=== PATIENT | female | born 1950 | race Caucasian/White ===

== ENCOUNTER 2016-07-14 23:12 | Emergency (ER) | payer OTHER ==
[~2016-07-14] VITALS: Ht 175.3 cm; Wt 95.1 kg
[~2016-07-14 23:12] MED LIST: 8 HOUR PAIN RE650 M1 PO; ADVAIR 250/501 DISK IH; ADVAIR HFA120 INHALA IH; ADVAIR IH; ALLERGY RELIEF10 M1 PO; ALLOPURINOL100 MG PO; ALLOPURINOL300 MG PO; ARTHRI-FLEX TA1 EACH PO; ASPIR 8181 M1 PO; ASPIRIN CHEWABL81 MG PO; ASPIRIN81 M1 PO; ASPIRIN81 M2 PO; ATIVAN0.5 MG PO; AUGMENTIN875 MG PO; BACLOFEN10 MG PO; BACTRIM,SEPT1 TABLE1 PO; BYSTOLIC10 MG PO; CALCIUM ACETAT667 M2 PO; CARDURA2 M1 PO; CILOSTAZOL50 MG PO; CIPRO500 MG PO; CLARITIN10 MG PO; COUMADIN3 MG PO; COUMADIN5 MG PO; COUMADIN6 MG PO; CYCLOBENZAPRINE10 MG PO; CYMBALTA60 MG PO; DAILY VITAMIN1 EAC4 PO; DAILY VITAMIN1 EAC8 PO; DAILY VITE1 EAC1 PO; DIALYVITE 3,001 EACH PO; DIALYVITE TABL1 EACH PO; DIAZEPAM5 MG PO; DIGOX125 MCG PO; DIGOXIN125 MCG PO; DILAUDID4 MG PO; DOXYCYCLINE HY100 M3 PO; EFFEXOR XR75 MG PO; EFFEXOR37.5 MG PO; EFFEXOR75 MG PO; FENOFIBRATE145 M1 PO; FOLBEE PLUS TABL5 MG PO; FOLIC ACID1 MG PO; GABAPENTIN300 MG PO; GRALISE300 MG PO; HYDROCODON-ACE1 EAC7 PO; LANOXIN125 MCG PO; LASIX80 MG PO; LEVAQUIN500 MG PO; LEVAQUIN750 MG PO; LEVOFLOXACIN500 MG PO; LEXAPRO10 MG PO; LO-DOSE ASPIRIN81 M1 PO; LOPRESSOR100 M1 PO; LOPRESSOR25 MG PO; LOPRESSOR50 MG PO; MAG-OXIDE400 MG PO; MAGNESIUM400 M1 PO; MAGNESIUM400 MG PO; MEDROL DOSEPAK4 MG PO; METOPROLOL SUC100 MG PO; METOPROLOL SUCC50 MG PO; METOPROLOL TART25 MG PO; METOPROLOL TART50 MG PO; MIDODRINE HCL10 MG PO; MIRALAX17 GM PO; MYCELEX10 MG PO; MYFORTIC PO; MYFORTIC360 MG PO; NASONEX17 GM BOTH NARES; NEURONTIN300 MG PO; NICOTINE PATCH1 EAC2 TD; NIFEDIPINE ER30 MG PO; NYQUIL D COLD295 ML PO; ONDANSETRON ODT4 MG PO; PANTOPRAZOLE SO40 MG PO; PRAVACHOL40 MG PO; PRAVASTATIN SOD40 MG PO; PREDNISONE10 MG PO; PREDNISONE20 MG PO; PROGRAF1 MG PO; PROGRAF5 MG PO; PROMETHAZINE HC25 M1 PO; PROTONIX40 MG PO; PROVENTIL HFA6.7 GM IH; PYRIDOXINE HCL50 MG PO; RENAGEL800 MG PO; RENVELA800 MG PO; SENSIPAR60 MG PO; SENSIPAR90 MG PO; SODIUM BICARBO325 M1 PO; SODIUM BICARBO325 MG PO; SPIRIVA1 INHALATI IH; ST. JOSEPH ASPI81 MG PO; TACROLIMUS ANHYD1 MG PO; TOPROL XL100 MG PO; TRAMADOL HCL50 MG PO; TRAZODONE HCL50 MG PO; TRICOR145 MG PO; TUSSIN400 MG PO; TYLENOL EXTRA500 MG PO; TYLENOL WITH C1 EACH PO; ULTRAM50 MG PO; VALCYTE450 MG PO; VALIUM5 MG PO; VASOTEC5 MG PO; VENLAFAXINE HCL75 M3 PO; VENLAFAXINE HCL75 MG PO; VENTOLIN HFA18 GM IH; VICODIN 5-5001 EACH PO; VITAMIN B-650 M1 PO; VITAMIN B-650 MG PO; VITAMIN D-32000 UNI2 PO; VITAMIN D-32000 UNIT PO; VITAMIN D2000 INTUN PO; VITAMIN D2000 UNIT PO; VITAMIN D32000 UNI1 PO; VOLTAREN 1% GE100 GM TP; WARFARIN SODIU2.5 MG PO; WARFARIN SODIUM2 MG PO; WARFARIN SODIUM3 MG PO; WARFARIN SODIUM5 MG PO; ZOFRAN ODT4 MG PO; ZOFRAN4 MG PO; ZUPLENZ4 MG PO; ZYLOPRIM100 MG PO; [UNRECOGNIZED DRUG - OTHER] TP
[2016-07-15 00:19] LABS: CHLORIDE 109 mEq/L (99-109); POTASSIUM 4.5 mEq/L (3.7-5.4); SODIUM 138 mEq/L (136-147)
[2016-07-15 00:20] LABS: HEMATOCRIT 47.8 % (36.0-46.0); MCH 28.4 PG (29.0-34.0); MCV 88.7 FL (83-99); PLATELET COUNT 176 K/uL (156-360); RBC DIS.WIDTH-CV 15.8 % (11.8-14.6); RBC DIS.WIDTH-SD 50.6 % (39-53); RED BLOOD COUNT 5.39 M/uL (3.80-5.20)
[2016-07-15 00:21] LABS: EOSINOPHIL (%) 0.1 % (0-5); GLUCOSE 215 mg/dL (70-99); IMMATURE GRANULOCYTE (%) 1.5 % (0.0-0.7); LYMPHOCYTE COUNT 1.1 K/uL (1.0-2.8); MONOCYTE (%) 4.5 % (3-12); MONOCYTE COUNT 0.4 K/uL (0-0.8); NEUTROPHIL (%) 79.5 % (45-76); NEUTROPHIL COUNT 6.3 K/uL (1.8-6.4)
[2016-07-15 00:22] LABS: ANION GAP 11 MEQ/L (2-14); IMMATURE GRANULOCYTE COUNT 0.1 K/uL
[2016-07-15 00:23] LABS: TOTAL BILIRUBIN 0.3 mg/dL (0.0-1.0)
[2016-07-15 00:24] LABS: ALKALINE PHOSPHATASE 79 IU/L (3-129)
[2016-07-15 00:25] LABS: GFR ESTIMATE (CALCULATED) 34 mL/min/
[2016-07-15 00:26] LABS: UREA NITROGEN (BUN) 47 mg/dL (9-23)
[2016-07-15 00:28] LABS: LIPASE 32 U/L (1.0-51.0); URIC ACID 8.5 mg/dL (3.1-9.2)
[2016-07-15 00:31] LABS: TROP-I INTERPRETATION NEGATIVE; TROPONIN-I 0.05 ng/mL (0.0-0.30)
[2016-07-15 01:36] LABS: INFLUENZA A VIRAL ANTIGEN NEGATIVE; INFLUENZA B VIRAL ANTIGEN NEGATIVE
[2016-07-15 01:43] LABS: INTER. NORMALIZED RATIO 1.1; PROTHROMBIN TIME 11.4 (9.2-11.2); PTT 35.4 (25-32)
[2016-07-15 02:47] LABS: ADD MIUA? YES; BILIRUBIN NEGATIVE; BLOOD LARGE; COLOR YELLOW ((YELLOW)); GLUCOSE (STRIP) NEGATIVE; KETONES NEGATIVE; LEUKOCYTES NEGATIVE; NITRITE NEGATIVE; PROTEIN (STRIP) 30; SPECIFIC GRAVITY 1.024 (1.000-1.030); UROBILINOGEN 0.2 MG/DL (0.2-1.0)
[2016-07-15 02:48] LABS: TROP-I INTERPRETATION NEGATIVE; TROPONIN-I 0.05 ng/mL (0.0-0.30)
[2016-07-15 02:48] LABS: AMPHETAMINE NEGATIVE (500 ng/mL); BENZODIAZEPINES NEGATIVE (150 ng/mL); COCAINE NEGATIVE (150 ng/mL); METHADONE NEGATIVE (200 ng/mL); METHAMPHETAMINE NEGATIVE (500 ng/mL); OPIATES (MORPHINE) NEGATIVE (100 ng/mL); PHENCYCLIDINE NEGATIVE (25 ng/mL); THC CANNABINOIDS NEGATIVE (50 ng/mL); TRICYCLIC ANTIDEPRESSANTS NEGATIVE (300 ng/mL)
[2016-07-15 02:49] LABS: BARBITURATES NEGATIVE (200 ng/mL); INTERNAL CONTROLS VALID? YES; OXYCODONE NEGATIVE (100 ng/mL); PROPOXYPHENE NEGATIVE (300 ng/mL)
[2016-07-15 03:10] LABS: BACTERIA RARE; CASTS NONE SEEN /LPF; CRYSTALS NONE SEEN; EPITHELIAL CELLS RARE; MUCUS NONE SEEN; RED BLOOD CELLS 40-50 /HPF (0-5); UCUL ADDED? NO; WHITE BLOOD CELLS 0-5 /HPF (0-5)
[2016-07-15 04:49] VITALS: BP 173/81
== END 2016-07-15 04:52 | disposition home or self-care (01) ==
LOC: EME → EDBD 23:12 → EME 07-15 04:52
PROVIDERS: Emergency Medicine
DX: R31.9 Hematuria, unspecified (principal); I10 Essential (primary) hypertension; N18.9 Chronic kidney disease, unspecified; R52 Pain, unspecified; F17.200 Nicotine dependence, unspecified, uncomplicated; J44.9 Chronic obstructive pulmonary disease, unspecified; K21.9 Gastro-esophageal reflux disease without esophagitis; Z87.442 Personal history of urinary calculi; Z91.041 Radiographic dye allergy status; Z88.6 Allergy status to analgesic agent
CPT/HCPCS: 71020; 74176; 80053; 81003; 83690; 84484; 84550; 85025; 85610; 85730; 87502; 93005; 99281; 99284; J1170

== ENCOUNTER 2016-12-19 10:47 | Emergency (ER) | payer OTHER ==
[~2016-12-19] VITALS: Ht 175.3 cm; Wt 91.1 kg
[2016-12-19 12:59] LABS: HEMATOCRIT 48.7 % (36.0-46.0); MCH 26.7 PG (29.0-34.0); MCHC 30.8 G/DL (30.0-36.0); MCV 86.7 FL (83-99); MEAN PLAT.VOLUME 9.4 uM^3 (9.5-12.4); PLATELET COUNT 215 K/uL (156-360); RBC DIS.WIDTH-CV 16.2 % (11.8-14.6); RBC DIS.WIDTH-SD 50.4 % (39-53); RED BLOOD COUNT 5.62 M/uL (3.80-5.20); WHITE BLOOD COUNT 9.5 K/uL (4.1-10.2)
[2016-12-19 13:09] LABS: INTER. NORMALIZED RATIO 1.1; PTT 33.7 (25-32)
[2016-12-19 13:11] LABS: CHLORIDE 105 mEq/L (99-109); POTASSIUM 4.5 mEq/L (3.7-5.4); SODIUM 136 mEq/L (136-147)
[2016-12-19 13:12] LABS: GLUCOSE 104 mg/dL (70-99)
[2016-12-19 13:14] LABS: ANION GAP 9 MEQ/L (2-14)
[2016-12-19 13:16] LABS: GFR ESTIMATE (CALCULATED) 53 mL/min/
[2016-12-19 13:17] LABS: UREA NITROGEN (BUN) 27 mg/dL (9-23)
[2016-12-19 14:46] VITALS: BP 157/89
== END 2016-12-19 14:47 | disposition home or self-care (01) ==
LOC: EME 10:47
PROVIDERS: Physician Assistant
DX: S30.0XXA Contusion of lower back and pelvis, initial encounter (principal); W18.2XXA Fall in (into) shower or empty bathtub, initial encounter; Y93.E1 Activity, personal bathing and showering; I10 Essential (primary) hypertension; J44.9 Chronic obstructive pulmonary disease, unspecified; K21.9 Gastro-esophageal reflux disease without esophagitis; M79.7 Fibromyalgia; F32.9 Major depressive disorder, single episode, unspecified; F17.200 Nicotine dependence, unspecified, uncomplicated; Z94.0 Kidney transplant status; Z79.01 Long term (current) use of anticoagulants
CPT/HCPCS: 70450; 72170; 80048; 85027; 85610; 85730; 99281; 99284; J3010

== ENCOUNTER 2017-01-30 09:35 | Inpatient (IN) | payer OTHER ==
[~2017-01-30] VITALS: Ht 172.7 cm; Wt 92.5 kg
[2017-01-30 10:11] LABS: BASOPHIL COUNT 0.1 K/uL (0-0.1); EOSINOPHIL (%) 2.4 % (0-5); EOSINOPHIL COUNT 0.1 K/uL (0-0.3); IMMATURE GRANULOCYTE (%) 0.3 % (0.0-0.7); LYMPHOCYTE COUNT 1.2 K/uL (1.0-2.8); MCH 27.2 PG (29.0-34.0); MCHC 30.6 G/DL (30.0-36.0); MCV 88.9 FL (83-99); MEAN PLAT.VOLUME 9.6 uM^3 (9.5-12.4); MONOCYTE (%) 8.1 % (3-12); MONOCYTE COUNT 0.5 K/uL (0-0.8); NEUTROPHIL (%) 68.5 % (45-76); PLATELET COUNT 142 K/uL (156-360); RBC DIS.WIDTH-CV 15.7 % (11.8-14.6); RED BLOOD COUNT 5.51 M/uL (3.80-5.20); WHITE BLOOD COUNT 5.8 K/uL (4.1-10.2)
[2017-01-30 10:17] LABS: INTER. NORMALIZED RATIO 1.1; PROTHROMBIN TIME 11.6 SEC (10.2-12.9)
[2017-01-30 10:20] LABS: CHLORIDE 110 mEq/L (99-109); POTASSIUM 4.2 mEq/L (3.7-5.4); SODIUM 140 mEq/L (136-147)
[2017-01-30 10:22] LABS: GLUCOSE 105 mg/dL (70-99)
[2017-01-30 10:23] LABS: ANION GAP 9 MEQ/L (2-14)
[2017-01-30 10:24] LABS: TOTAL BILIRUBIN 0.6 mg/dL (0.0-1.0)
[2017-01-30 10:25] LABS: ALKALINE PHOSPHATASE 81 IU/L (3-129)
[2017-01-30 10:26] LABS: GFR ESTIMATE (CALCULATED) > 59 mL/min/
[2017-01-30 10:27] LABS: ADD MIUA? NO; BILIRUBIN NEGATIVE; BLOOD NEGATIVE; COLOR YELLOW ((YELLOW)); GLUCOSE (STRIP) NEGATIVE; KETONES NEGATIVE; LEUKOCYTES NEGATIVE; NITRITE NEGATIVE; PROTEIN (STRIP) 30; SPECIFIC GRAVITY 1.015 (1.000-1.030); UCUL ADDED? NO; UROBILINOGEN 0.2 MG/DL (0.2-1.0)
[2017-01-30 10:27] LABS: UREA NITROGEN (BUN) 22 mg/dL (9-23)
[2017-01-30 10:34] LABS: TROP-I INTERPRETATION NEGATIVE; TROPONIN-I < 0.01 ng/mL (0.0-0.30)
[2017-01-30 15:24] VITALS: BP 166/81
[2017-01-30 19:49] VITALS: BP 159/74
[2017-01-30] MEDS ORDERED: ADVAIR 500/501 DISK IH (22:48)
[2017-01-31 00:08] VITALS: BP 138/89
[2017-01-31 03:42] VITALS: BP 167/77
[2017-01-31 06:12] LABS: EOSINOPHIL (%) 2.4 % (0-5); EOSINOPHIL COUNT 0.2 K/uL (0-0.3); HEMATOCRIT 46.1 % (36.0-46.0); IMMATURE GRANULOCYTE (%) 0.3 % (0.0-0.7); INSTRUMENT ABS NEUTROPHIL CT 3.7 K/uL; LYMPHOCYTE COUNT 1.5 K/uL (1.0-2.8); MCH 27.6 PG (29.0-34.0); MCHC 30.4 G/DL (30.0-36.0); MCV 90.9 FL (83-99); MEAN PLAT.VOLUME 10.2 uM^3 (9.5-12.4); MONOCYTE (%) 11.2 % (3-12); MONOCYTE COUNT 0.7 K/uL (0-0.8); NEUTROPHIL (%) 60.8 % (45-76); NEUTROPHIL COUNT 3.7 K/uL (1.8-6.4); PLATELET COUNT 145 K/uL (156-360); RBC DIS.WIDTH-CV 15.7 % (11.8-14.6); RED BLOOD COUNT 5.07 M/uL (3.80-5.20); WHITE BLOOD COUNT 6.2 K/uL (4.1-10.2)
[2017-01-31 06:37] LABS: ALKALINE PHOSPHATASE 70 IU/L (3-129); ANION GAP 8 MEQ/L (2-14); CHLORIDE 109 MEQ/L (99-109); GFR ESTIMATE (CALCULATED) > 59 mL/min/; GLUCOSE 88 mg/dL (70-99); HDL CHOLESTEROL 27 MG/DL (Desirable>=50); LDL CHOLESTEROL 124 mg/dL (Desirable<100); NON-HDL CHOLESTEROL 161 mg/dL (Desirable<160); POTASSIUM 4.3 MEQ/L (3.7-5.4); SAMPLE HEMOLYSIS CHECK 0; SAMPLE ICTERIC CHECK 0; SAMPLE LIPEMIA CHECK 0; SODIUM 141 MEQ/L (136-147); TOTAL BILIRUBIN 0.6 MG/DL (0.0-1.0); TOTAL CHOLESTEROL 188 mg/dL (Desirable<200); TRIGLYCERIDES 186 MG/DL (Normal: <150); UREA NITROGEN (BUN) 20 mg/dL (9-23)
[2017-01-31 06:59] LABS: Estimated Average Glucose 94 mg/dL (70-123); HEMOGLOBIN A1c (GLYCOHEMOGLOB) 4.9 % HGB (Below 5.7)
[2017-01-31 08:15] VITALS: BP 177/73
[2017-01-31] MEDS ORDERED: SENSIPAR30 MG PO (08:51)
[2017-01-31] MEDS ORDERED: PRADAXA75 MG PO (08:54)
[2017-01-31] MEDS ORDERED: ADVAIR 250/501 DISK IH (08:54)
[2017-01-31] MEDS ORDERED: RANITIDINE HCL300 MG PO (08:54)
[2017-01-31] MEDS ORDERED: TRAMADOL HCL50 MG PO (08:55)
[2017-01-31] MEDS ORDERED: TACROLIMUS ANHYD1 MG PO (10:57)
[2017-01-31] MEDS ORDERED: MOMETASONE FURO17 GM BOTH NARES (10:58)
[2017-01-31 15:19] VITALS: BP 152/87
[2017-01-31 19:35] VITALS: BP 184/96
[2017-01-31 23:44] VITALS: BP 198/92
[2017-02-01 03:20] VITALS: BP 188/82
[2017-02-01 08:19] VITALS: BP 155/89
[2017-02-01 10:53] VITALS: BP 149/74
[2017-02-01] MEDS ORDERED: ASPIR-LOW81 MG PO (11:27)
[2017-02-01] MEDS ORDERED: LIPITOR40 MG PO (11:27)
[2017-02-01] MEDS ORDERED: NIFEDIPINE ER30 MG PO (11:27)
[2017-02-02] MEDS ORDERED: APRESOLINE10 MG PO (01:54)
[2017-02-02] MEDS ORDERED: FOLIC ACID1 MG PO (01:55)
[2017-02-02] MEDS ORDERED: TYLENOL REGULA325 MG PO (01:55)
[2017-02-02] MEDS ORDERED: PEPCID40 MG PO (01:55)
[2017-02-02] MEDS ORDERED: TRICOR145 MG PO (01:56)
[2017-02-02] MEDS ORDERED: CYMBALTA60 MG PO (01:56)
[2017-02-02] MEDS ORDERED: MYFORTIC360 MG PO (01:57)
== END 2017-02-01 15:07 | DRG 64 ==
LOC: EME 09:35 → 5SOUTH 10:59 → EDOF 10:59 → ENRESERV 11:03 → 5SOUTH 15:14
PROVIDERS: Emergency Medicine; Hospitalist
DX: I63.512 Cerebral infarction due to unspecified occlusion or stenosis of left middle cerebral artery (principal); G93.40 Encephalopathy, unspecified; R47.01 Aphasia; R09.02 Hypoxemia; I12.9 Hypertensive chronic kidney disease with stage 1 through stage 4 chronic kidney disease, or unspecified chronic kidney disease; N18.3 Chronic kidney disease, stage 3 (moderate); E78.5 Hyperlipidemia, unspecified; I48.91 Unspecified atrial fibrillation; J44.9 Chronic obstructive pulmonary disease, unspecified; I25.10 Atherosclerotic heart disease of native coronary artery without angina pectoris; G62.9 Polyneuropathy, unspecified; I73.9 Peripheral vascular disease, unspecified; K21.9 Gastro-esophageal reflux disease without esophagitis; M79.7 Fibromyalgia; R29.700 NIHSS score 0; Z66 Do not resuscitate; F17.200 Nicotine dependence, unspecified, uncomplicated; Z79.02 Long term (current) use of antithrombotics/antiplatelets; Z94.0 Kidney transplant status; Z95.2 Presence of prosthetic heart valve
CPT/HCPCS: 70450; 70544; 70549; 70551; 71020; 80053; 80061; 80197 90; 81003; 83036; 84484; 85025; 85610; 92610 GN; 93005; 93306; 94640; 94640 76; 94799; 99202; 99281; 99285; J0360; J1940; J2060; J2270; J2405; J7030; J7507; J7518

== ENCOUNTER 2017-02-01 10:05 | Inpatient (IN) | payer OTHER ==
[~2017-02-01] VITALS: Ht 172.7 cm; Wt 87.6 kg
[~2017-02-01 10:05] MED LIST changes: +ADVAIR 500/501 DISK IH; +MOMETASONE FURO17 GM BOTH NARES; +PRADAXA75 MG PO; +RANITIDINE HCL300 MG PO; +SENSIPAR30 MG PO
[2017-02-01] MEDS ORDERED: ASPIR-LOW81 MG PO (11:27)
[2017-02-01] MEDS ORDERED: LIPITOR40 MG PO (11:27)
[2017-02-01] MEDS ORDERED: NIFEDIPINE ER30 MG PO (11:27)
[2017-02-01 17:16] VITALS: BP 174/89
[2017-02-01 19:00] VITALS: BP 160/80
[2017-02-02] MEDS ORDERED: APRESOLINE10 MG PO (01:54)
[2017-02-02] MEDS ORDERED: PEPCID40 MG PO (01:55)
[2017-02-02] MEDS ORDERED: TYLENOL REGULA325 MG PO (01:55)
[2017-02-02] MEDS ORDERED: FOLIC ACID1 MG PO (01:55)
[2017-02-02] MEDS ORDERED: CYMBALTA60 MG PO (01:56)
[2017-02-02] MEDS ORDERED: TRICOR145 MG PO (01:56)
[2017-02-02] MEDS ORDERED: MYFORTIC360 MG PO (01:57)
[2017-02-02 04:52] VITALS: BP 109/57
[2017-02-02 05:01] LABS: HEMATOCRIT 49.5 % (36.0-46.0); MCHC 31.1 G/DL (30.0-36.0); MEAN PLAT.VOLUME 9.9 uM^3 (9.5-12.4); PLATELET COUNT 150 K/uL (156-360); RBC DIS.WIDTH-CV 15.1 % (11.8-14.6); RBC DIS.WIDTH-SD 48.1 % (39-53); WHITE BLOOD COUNT 6.4 K/uL (4.1-10.2)
[2017-02-02 05:02] LABS: MCV 86.8 FL (83-99)
[2017-02-02 05:07] LABS: CHLORIDE 106 mEq/L (99-109); POTASSIUM 3.7 mEq/L (3.7-5.4); SODIUM 141 mEq/L (136-147)
[2017-02-02 05:09] LABS: GLUCOSE 98 mg/dL (70-99)
[2017-02-02 05:10] LABS: ANION GAP 10 MEQ/L (2-14)
[2017-02-02 05:12] LABS: ALKALINE PHOSPHATASE 82 IU/L (3-129)
[2017-02-02 05:13] LABS: GFR ESTIMATE (CALCULATED) 59 mL/min/; TOTAL BILIRUBIN 0.8 mg/dL (0.0-1.0)
[2017-02-02 05:14] LABS: UREA NITROGEN (BUN) 21 mg/dL (9-23)
[2017-02-02 15:27] VITALS: BP 102/58
[2017-02-03 05:40] VITALS: BP 146/73
[2017-02-03 15:48] VITALS: BP 118/56
[2017-02-04 06:49] VITALS: BP 107/62
[2017-02-04 15:45] VITALS: BP 139/66
[2017-02-05 05:32] VITALS: BP 186/77
[2017-02-05 16:01] VITALS: BP 118/72
[2017-02-06 05:50] VITALS: BP 124/79
[2017-02-06 15:31] VITALS: BP 122/76
[2017-02-07 05:05] VITALS: BP 141/67
[2017-02-07 15:52] VITALS: BP 117/78
[2017-02-08 05:32] VITALS: BP 124/74
[2017-02-08 15:26] VITALS: BP 108/68
[2017-02-09 05:04] VITALS: BP 130/76
[2017-02-09 15:35] VITALS: BP 108/72
[2017-02-10 05:15] VITALS: BP 116/63
[2017-02-10 15:34] VITALS: BP 119/68
[2017-02-11 04:43] VITALS: BP 104/64
[2017-02-11 06:31] LABS: ANION GAP 8 MEQ/L (2-14); CHLORIDE 108 MEQ/L (99-109); GFR ESTIMATE (CALCULATED) 44 mL/min/; GLUCOSE 93 mg/dL (70-99); POTASSIUM 4.7 MEQ/L (3.7-5.4); SAMPLE HEMOLYSIS CHECK 0; SAMPLE ICTERIC CHECK 0; SAMPLE LIPEMIA CHECK 0; SODIUM 141 MEQ/L (136-147); UREA NITROGEN (BUN) 29 mg/dL (9-23)
[2017-02-11 15:00] VITALS: BP 121/55
[2017-02-12 05:32] LABS: MCH 26.6 PG (29.0-34.0); MCHC 30.4 G/DL (30.0-36.0); MCV 87.4 FL (83-99); PLATELET COUNT 170 K/uL (156-360); RBC DIS.WIDTH-CV 14.4 % (11.8-14.6); RED BLOOD COUNT 5.38 M/uL (3.80-5.20); WHITE BLOOD COUNT 6.3 K/uL (4.1-10.2)
[2017-02-12 06:24] LABS: ALKALINE PHOSPHATASE 70 IU/L (3-129); ANION GAP 8 MEQ/L (2-14); CHLORIDE 108 MEQ/L (99-109); GFR ESTIMATE (CALCULATED) 44 mL/min/; GLUCOSE 92 mg/dL (70-99); POTASSIUM 4.8 MEQ/L (3.7-5.4); SAMPLE HEMOLYSIS CHECK 0; SAMPLE ICTERIC CHECK 0; SAMPLE LIPEMIA CHECK 0; SODIUM 142 MEQ/L (136-147); TOTAL BILIRUBIN 0.4 MG/DL (0.0-1.0); UREA NITROGEN (BUN) 33 mg/dL (9-23)
[2017-02-12 06:26] VITALS: BP 97/52
[2017-02-12 08:10] VITALS: BP 109/68
[2017-02-12 16:00] VITALS: BP 120/70; BP 122/76
[2017-02-12] MEDS ORDERED: PRADAXA75 MG PO (21:56)
[2017-02-12] MEDS ORDERED: ASPIR-LOW81 MG PO (21:56)
[2017-02-12] MEDS ORDERED: METOPROLOL SUCC50 MG PO (21:56)
[2017-02-12] MEDS ORDERED: NICOTINE PATCH1 EAC2 TD (21:56)
[2017-02-12] MEDS ORDERED: TRAMADOL HCL50 MG PO (21:56)
[2017-02-12] MEDS ORDERED: CILOSTAZOL50 MG PO (21:56)
[2017-02-12] MEDS ORDERED: POLYETHYLENE GL17 GM PO (21:56)
[2017-02-12] MEDS ORDERED: SENNA PLUS TAB1 EACH PO (21:56)
[2017-02-12] MEDS ORDERED: FOLIC ACID1 MG PO (21:56)
[2017-02-12] MEDS ORDERED: NIFEDIPINE ER30 MG PO (21:56)
[2017-02-12] MEDS ORDERED: PEPCID40 MG PO (21:56)
[2017-02-12] MEDS ORDERED: LIPITOR40 MG PO (21:56)
[2017-02-13 05:50] VITALS: BP 136/70
== END 2017-02-13 14:57 | disposition home health service (06) | DRG 57 ==
LOC: 3WEST 10:05 → ENPENDDIS 02-13 → 3WEST 02-13 14:57
PROVIDERS: Internal Medicine Nephrology; Physical Medicine & Rehabilitation Pain Medicine
PROC: F07M0ZZ Range of Motion and Joint Mobility Treatment of Musculoskeletal System - Whole Body (ICD-10-PCS; principal; 2017-02-01)
DX: I69.320 Aphasia following cerebral infarction (principal); I69.351 Hemiplegia and hemiparesis following cerebral infarction affecting right dominant side; E78.5 Hyperlipidemia, unspecified; D69.6 Thrombocytopenia, unspecified; M79.7 Fibromyalgia; J44.9 Chronic obstructive pulmonary disease, unspecified; I25.10 Atherosclerotic heart disease of native coronary artery without angina pectoris; K21.9 Gastro-esophageal reflux disease without esophagitis; Z94.0 Kidney transplant status; G89.4 Chronic pain syndrome; K59.00 Constipation, unspecified; M19.90 Unspecified osteoarthritis, unspecified site; I73.9 Peripheral vascular disease, unspecified; F17.203 Nicotine dependence unspecified, with withdrawal; I69.318 Other symptoms and signs involving cognitive functions following cerebral infarction; I69.391 Dysphagia following cerebral infarction; R13.10 Dysphagia, unspecified; G62.9 Polyneuropathy, unspecified; I10 Essential (primary) hypertension
CPT/HCPCS: 73502; 80053; 80069; 80197 90; 85027; 92507 GN; 92523 GN; 94640; 94640 76; 97110 GO; 97530 GP; 99202; J7507; J7518

== ENCOUNTER 2017-06-20 08:37 | Inpatient (IN) | payer OTHER ==
[~2017-06-20] VITALS: Ht 175.3 cm; Wt 89.5 kg
[~2017-06-20 08:37] MED LIST changes: +APRESOLINE10 MG PO; +ASPIR-LOW81 MG PO; +LIPITOR40 MG PO; +MACROBID100 MG PO; +PEPCID40 MG PO; +POLYETHYLENE GL17 GM PO; +SENNA PLUS TAB1 EACH PO; +TYLENOL REGULA325 MG PO
[2017-06-20 09:12] LABS: BASOPHIL COUNT 0.1 K/uL (0-0.1); EOSINOPHIL (%) 1.9 % (0-5); EOSINOPHIL COUNT 0.1 K/uL (0-0.3); HEMATOCRIT 47.1 % (36.0-46.0); IMMATURE GRANULOCYTE (%) 0.3 % (0.0-0.7); INSTRUMENT ABS NEUTROPHIL CT 4.6 K/uL; MCHC 32.1 G/DL (30.0-36.0); MCV 87.2 FL (83-99); MEAN PLAT.VOLUME 9.7 uM^3 (9.5-12.4); MONOCYTE (%) 8.6 % (3-12); MONOCYTE COUNT 0.7 K/uL (0-0.8); NEUTROPHIL (%) 61.3 % (45-76); NEUTROPHIL COUNT 4.6 K/uL (1.8-6.4); PLATELET COUNT 187 K/uL (156-360); RBC DIS.WIDTH-CV 15.6 % (11.8-14.6); RBC DIS.WIDTH-SD 49.8 % (39-53); WHITE BLOOD COUNT 7.5 K/uL (4.1-10.2)
[2017-06-20 09:17] LABS: INTER. NORMALIZED RATIO 1.3; PROTHROMBIN TIME 14.4 SEC (10.2-12.9)
[2017-06-20 09:20] LABS: PTT 41.7 SEC (25-37)
[2017-06-20 09:26] LABS: CHLORIDE 109 mEq/L (99-109); POTASSIUM 4.5 mEq/L (3.7-5.4); SODIUM 141 mEq/L (136-147)
[2017-06-20 09:28] LABS: GLUCOSE 100 mg/dL (70-99)
[2017-06-20 09:30] LABS: ANION GAP 10 MEQ/L (2-14)
[2017-06-20 09:32] LABS: GFR ESTIMATE (CALCULATED) 59 mL/min/; TROP-I INTERPRETATION NEGATIVE; TROPONIN-I < 0.01 ng/mL (0.0-0.30)
[2017-06-20 09:33] LABS: UREA NITROGEN (BUN) 30 mg/dL (9-23)
[2017-06-20 12:21] LABS: HDL CHOLESTEROL 28 MG/DL (Desirable>=50); LDL CHOLESTEROL 124 mg/dL (Desirable<100); NON-HDL CHOLESTEROL 153 mg/dL (Desirable<160); SAMPLE HEMOLYSIS CHECK 0; SAMPLE ICTERIC CHECK 0; SAMPLE LIPEMIA CHECK 0; TOTAL CHOLESTEROL 181 mg/dL (Desirable<200); TRIGLYCERIDES 147 MG/DL (Normal: <150)
[2017-06-20 12:56] LABS: Estimated Average Glucose 108 mg/dL (70-123); HEMOGLOBIN A1c (GLYCOHEMOGLOB) 5.4 % HGB (Below 5.7)
[2017-06-20 13:27] VITALS: BP 148/75
[2017-06-20] MEDS ORDERED: FLUOXETINE HCL40 MG PO (13:36)
[2017-06-20] MEDS ORDERED: TACROLIMUS ANHYD1 MG PO (13:36)
[2017-06-20] MEDS ORDERED: BACLOFEN10 MG PO (13:37)
[2017-06-20] MEDS ORDERED: LYRICA100 MG PO (13:37)
[2017-06-20] MEDS ORDERED: RANITIDINE HCL300 MG PO (13:37)
[2017-06-20] MEDS ORDERED: INCRUSE ELLI62.5 MCG IH (13:38)
[2017-06-20] MEDS ORDERED: ATORVASTATIN CA40 MG PO (13:38)
[2017-06-20 15:49] LABS: TROP-I INTERPRETATION NEGATIVE; TROPONIN-I < 0.01 ng/mL (0.0-0.30)
[2017-06-20 19:49] VITALS: BP 117/67
[2017-06-20 22:11] LABS: TROP-I INTERPRETATION NEGATIVE; TROPONIN-I < 0.01 ng/mL (0.0-0.30)
[2017-06-20 23:59] VITALS: BP 158/81
[2017-06-21 07:51] VITALS: BP 141/83
[2017-06-21 11:55] VITALS: BP 145/70
[2017-06-21 16:22] VITALS: BP 178/90
[2017-06-21 19:26] VITALS: BP 124/63
[2017-06-21 22:20] LABS: ADD MIUA? YES; BILIRUBIN NEGATIVE; BLOOD MODERATE; COLOR YELLOW ((YELLOW)); GLUCOSE (STRIP) NEGATIVE; KETONES NEGATIVE; LEUKOCYTES LARGE; NITRITE POSITIVE; PROTEIN (STRIP) NEGATIVE; SPECIFIC GRAVITY 1.009 (1.000-1.030); UROBILINOGEN 0.2 MG/DL (0.2-1.0)
[2017-06-21 22:36] LABS: UCUL ADDED? YES; WHITE BLOOD CELLS TNTC /HPF (0-5); WHITE BLOOD CELLS CLUMP MANY /HPF (0-5)
[2017-06-22] VITALS (7 sets, daily range): BP systolic 126–200; BP diastolic 57–97
[2017-06-22 00:24] LABS: EPITHELIAL CELLS 1+ /HPF; MUCUS 1+ /LPF
[2017-06-22 00:25] LABS: BACTERIA 3+ /HPF; CASTS NONE SEEN /LPF; CRYSTALS NONE SEEN
[2017-06-23] VITALS (8 sets, daily range): BP systolic 105–172; BP diastolic 52–94
[2017-06-24 07:24] VITALS: BP 151/82
[2017-06-24] MEDS ORDERED: CEFTIN500 MG PO (12:10)
[2017-06-24] MEDS ORDERED: PRADAXA150 MG PO (12:11)
[2017-06-24] MEDS ORDERED: METOPROLOL SUCC50 MG PO (12:13)
[2017-06-24] MEDS ORDERED: APRESOLINE10 MG PO (14:50)
[2017-06-24] MEDS ORDERED: SPIRIVA RESPIMAT4 G1 IH (14:51)
[2017-06-24] MEDS ORDERED: PEPCID40 MG PO (14:51)
[2017-06-24] MEDS ORDERED: NICODERM CQ1 EAC2 TD (14:52)
== END 2017-06-24 14:05 | DRG 65 ==
LOC: EME 08:37 → EDOF 10:35 → ENRESERV 10:48 → 5SOUTH 11:31 → EDOF 11:31 → 5SOUTH 13:04
PROVIDERS: Emergency Medicine; Family Medicine; Internal Medicine
DX: I63.8 Other cerebral infarction (principal); N39.0 Urinary tract infection, site not specified; Z94.0 Kidney transplant status; I48.0 Paroxysmal atrial fibrillation; I25.10 Atherosclerotic heart disease of native coronary artery without angina pectoris; B96.1 Klebsiella pneumoniae [K. pneumoniae] as the cause of diseases classified elsewhere; F17.210 Nicotine dependence, cigarettes, uncomplicated; J44.9 Chronic obstructive pulmonary disease, unspecified; G89.4 Chronic pain syndrome; K21.9 Gastro-esophageal reflux disease without esophagitis; M19.90 Unspecified osteoarthritis, unspecified site; G62.9 Polyneuropathy, unspecified; M79.7 Fibromyalgia; N20.0 Calculus of kidney; R09.02 Hypoxemia; I27.20 Pulmonary hypertension, unspecified; I10 Essential (primary) hypertension; Z79.01 Long term (current) use of anticoagulants; Z99.81 Dependence on supplemental oxygen; Z95.5 Presence of coronary angioplasty implant and graft; Z87.442 Personal history of urinary calculi; Z86.718 Personal history of other venous thrombosis and embolism; Z86.73 Personal history of transient ischemic attack (TIA), and cerebral infarction without residual deficits; Z79.82 Long term (current) use of aspirin; Z91.041 Radiographic dye allergy status; Z80.8 Family history of malignant neoplasm of other organs or systems; Z82.49 Family history of ischemic heart disease and other diseases of the circulatory system
CPT/HCPCS: 70450; 70551; 71010; 80048; 80061; 81003; 83036; 84484; 85025; 85610; 85730; 87077; 87086; 87186; 92610 GN; 93005; 93306; 93880; 94640; 94640 76; 94760; 94799; 99281; 99285; J0360; J2060; J2270; J2405; J7507

== ENCOUNTER 2017-06-24 12:20 | Inpatient (IN) | payer OTHER ==
[~2017-06-24] VITALS: Ht 175.3 cm; Wt 90.7 kg
[~2017-06-24 12:20] MED LIST changes: +ATORVASTATIN CA40 MG PO; +CEFTIN500 MG PO; +FLUOXETINE HCL40 MG PO; +INCRUSE ELLI62.5 MCG IH; +LYRICA100 MG PO; +PRADAXA150 MG PO
[2017-06-24] MEDS ORDERED: APRESOLINE10 MG PO (14:50)
[2017-06-24] MEDS ORDERED: PEPCID40 MG PO (14:51)
[2017-06-24] MEDS ORDERED: SPIRIVA RESPIMAT4 G1 IH (14:51)
[2017-06-24] MEDS ORDERED: NICODERM CQ1 EAC2 TD (14:52)
[2017-06-24 15:09] VITALS: BP 130/75
[2017-06-24 23:45] VITALS: BP 138/74
[2017-06-25 04:24] VITALS: BP 138/70
[2017-06-25 06:08] LABS: HEMATOCRIT 45.8 % (36.0-46.0); MCH 27.4 PG (29.0-34.0); MCHC 30.8 G/DL (30.0-36.0); MCV 89.1 FL (83-99); MEAN PLAT.VOLUME 9.9 uM^3 (9.5-12.4); PLATELET COUNT 139 K/uL (156-360); RBC DIS.WIDTH-CV 15.3 % (11.8-14.6); RBC DIS.WIDTH-SD 50.2 % (39-53); RED BLOOD COUNT 5.14 M/uL (3.80-5.20); WHITE BLOOD COUNT 6.8 K/uL (4.1-10.2)
[2017-06-25 07:02] LABS: ALKALINE PHOSPHATASE 85 IU/L (3-129); ANION GAP 9 MEQ/L (2-14); CHLORIDE 107 MEQ/L (99-109); GFR ESTIMATE (CALCULATED) 43 mL/min/; GLUCOSE 91 mg/dL (70-99); POTASSIUM 4.9 MEQ/L (3.7-5.4); SAMPLE HEMOLYSIS CHECK 0; SAMPLE ICTERIC CHECK 0; SAMPLE LIPEMIA CHECK 0; SODIUM 142 MEQ/L (136-147); TOTAL BILIRUBIN 0.5 MG/DL (0.0-1.0); UREA NITROGEN (BUN) 36 mg/dL (9-23)
[2017-06-25 16:02] VITALS: BP 146/73
[2017-06-26 05:29] VITALS: BP 159/68
[2017-06-26 15:19] VITALS: BP 143/63
[2017-06-27 05:23] VITALS: BP 136/78
[2017-06-28 05:49] VITALS: BP 138/65
[2017-06-28 15:44] VITALS: BP 153/80
[2017-06-29 05:48] VITALS: BP 150/94
[2017-06-29 12:00] VITALS: BP 129/80
[2017-06-29 13:19] LABS: TROP-I INTERPRETATION NEGATIVE; TROPONIN-I < 0.01 ng/mL (0.0-0.30)
[2017-06-30 05:25] VITALS: BP 170/80
[2017-06-30] MEDS ORDERED: SENSIPAR30 MG PO (12:26)
[2017-06-30] MEDS ORDERED: ASPIR-LOW81 MG PO (12:26)
[2017-06-30] MEDS ORDERED: APRESOLINE10 MG PO (12:26)
[2017-06-30] MEDS ORDERED: FOLIC ACID1 MG PO (12:26)
[2017-06-30] MEDS ORDERED: PROVENTIL HFA6.7 GM IH (12:26)
[2017-06-30] MEDS ORDERED: MOMETASONE FURO17 GM BOTH NARES (12:26)
[2017-06-30] MEDS ORDERED: PRADAXA150 MG PO (12:26)
[2017-06-30] MEDS ORDERED: TACROLIMUS ANHYD1 MG PO ×2 (12:26)
[2017-06-30] MEDS ORDERED: LIPITOR40 MG PO (12:26)
[2017-06-30] MEDS ORDERED: NICODERM CQ1 EAC2 TD (12:26)
[2017-06-30] MEDS ORDERED: DOCUSATE SODIU100 MG PO (12:26)
[2017-06-30] MEDS ORDERED: ADVAIR 250/501 DISK IH (12:26)
[2017-06-30] MEDS ORDERED: INCRUSE ELLI62.5 MCG IH (12:26)
[2017-06-30] MEDS ORDERED: METOPROLOL SUCC50 MG PO (12:26)
[2017-06-30] MEDS ORDERED: MAGNESIUM400 M1 PO (12:26)
[2017-06-30] MEDS ORDERED: BACLOFEN10 MG PO (12:41)
[2017-06-30] MEDS ORDERED: LYRICA100 MG PO (12:41)
[2017-06-30 12:42] VITALS: BP 114/63
== END 2017-06-30 15:16 | DRG 57 ==
LOC: 3WEST 12:20 → EDPENDDISDT 06-29 → ENPENDDIS 06-30 → 3WEST 06-30 15:16
PROVIDERS: Physical Medicine & Rehabilitation Pain Medicine
PROC: F07M0ZZ Range of Motion and Joint Mobility Treatment of Musculoskeletal System - Whole Body (ICD-10-PCS; principal; 2017-06-24)
DX: I69.354 Hemiplegia and hemiparesis following cerebral infarction affecting left non-dominant side (principal); I69.322 Dysarthria following cerebral infarction; N39.0 Urinary tract infection, site not specified; R07.2 Precordial pain; J44.9 Chronic obstructive pulmonary disease, unspecified; I11.9 Hypertensive heart disease without heart failure; E78.5 Hyperlipidemia, unspecified; G89.29 Other chronic pain; I25.10 Atherosclerotic heart disease of native coronary artery without angina pectoris; I27.20 Pulmonary hypertension, unspecified; I48.0 Paroxysmal atrial fibrillation; I48.92 Unspecified atrial flutter; I73.9 Peripheral vascular disease, unspecified; K21.9 Gastro-esophageal reflux disease without esophagitis; K59.00 Constipation, unspecified; M79.7 Fibromyalgia; E66.9 Obesity, unspecified; Z86.73 Personal history of transient ischemic attack (TIA), and cerebral infarction without residual deficits; Z94.0 Kidney transplant status; Z87.891 Personal history of nicotine dependence; Z95.828 Presence of other vascular implants and grafts; Z91.041 Radiographic dye allergy status; Z88.5 Allergy status to narcotic agent; Z68.29 Body mass index [BMI] 29.0-29.9, adult
CPT/HCPCS: 71010; 80053; 84484; 85027; 92507 GN; 92523 GN; 93005; 94640 76; 97110 GO; 97530 GP; 99202; J7507

== ENCOUNTER 2017-08-01 11:33 | Inpatient (IN) | payer OTHER ==
[~2017-08-01] VITALS: Ht 175.3 cm; Wt 90.5 kg
[~2017-08-01 11:33] MED LIST changes: +DOCUSATE SODIU100 MG PO; +NICODERM CQ1 EAC2 TD; +SPIRIVA RESPIMAT4 G1 IH
[2017-08-01 12:44] LABS: BASOPHIL (%) 0.5 % (0-1); EOSINOPHIL (%) 0.2 % (0-5); HEMATOCRIT 43.4 % (36.0-46.0); HEMOGLOBIN 13.2 G/DL (11.9-15.5); IMMATURE GRANULOCYTE (%) 0.6 % (0.0-0.7); LYMPHOCYTE (%) 14.7 % (15-42); MCH 27.8 PG (29.0-34.0); MCHC 30.4 G/DL (30.0-36.0); MCV 91.4 FL (83-99); MONOCYTE COUNT 0.5 K/uL (0-0.8); NEUTROPHIL COUNT 5.1 K/uL (1.8-6.4); PLATELET COUNT 151 K/uL (156-360); RBC DIS.WIDTH-CV 18.2 % (11.8-14.6); RBC DIS.WIDTH-SD 59.6 % (39-53); RED BLOOD COUNT 4.75 M/uL (3.80-5.20); WHITE BLOOD COUNT 6.6 K/uL (4.1-10.2)
[2017-08-01 12:55] LABS: CHLORIDE 110 mEq/L (99-109); POTASSIUM 4.6 mEq/L (3.7-5.4); SODIUM 140 mEq/L (136-147)
[2017-08-01 12:57] LABS: GLUCOSE 106 mg/dL (70-99)
[2017-08-01 13:01] LABS: GFR ESTIMATE (CALCULATED) 59 mL/min/
[2017-08-01 13:02] LABS: UREA NITROGEN (BUN) 31 mg/dL (9-23)
[2017-08-01 13:07] LABS: TROP-I INTERPRETATION NEGATIVE; TROPONIN-I 0.05 ng/mL (0.0-0.30)
[2017-08-01] MEDS ORDERED: BACLOFEN10 MG PO (14:07)
[2017-08-01] MEDS ORDERED: HYDRALAZINE HCL10 MG PO (14:08)
[2017-08-01] MEDS ORDERED: SPIRIVA1 INHALATI IH (14:12)
[2017-08-01 17:07] VITALS: BP 135/69
[2017-08-01 18:31] LABS: TROP-I INTERPRETATION NEGATIVE; TROPONIN-I 0.05 ng/mL (0.0-0.30)
[2017-08-01 20:00] VITALS: BP 130/69
[2017-08-01 23:55] VITALS: BP 142/67
[2017-08-02] VITALS (8 sets, daily range): BP systolic 83–135; BP diastolic 52–78
[2017-08-02 01:07] LABS: TROP-I INTERPRETATION NEGATIVE; TROPONIN-I 0.02 ng/mL (0.0-0.30)
[2017-08-02 06:34] LABS: TROP-I INTERPRETATION NEGATIVE; TROPONIN-I 0.02 ng/mL (0.0-0.30)
[2017-08-02 09:36] LABS: HEMATOCRIT 44.2 % (36.0-46.0); HEMOGLOBIN 13.4 G/DL (11.9-15.5); MCHC 30.3 G/DL (30.0-36.0); MCV 92.5 FL (83-99); PLATELET COUNT 146 K/uL (156-360); RBC DIS.WIDTH-CV 18.3 % (11.8-14.6); RBC DIS.WIDTH-SD 61.1 % (39-53); RED BLOOD COUNT 4.78 M/uL (3.80-5.20); WHITE BLOOD COUNT 3.7 K/uL (4.1-10.2)
[2017-08-02 10:52] LABS: CHLORIDE 108 MEQ/L (99-109); CREATININE 1.2 MG/DL (0.6-1.3); GFR ESTIMATE (CALCULATED) 48 mL/min/; POTASSIUM 4.6 MEQ/L (3.7-5.4); SODIUM 141 MEQ/L (136-147); UREA NITROGEN (BUN) 40 mg/dL (9-23)
[2017-08-02 10:53] LABS: GLUCOSE 163 mg/dL (70-99)
[2017-08-03] VITALS (7 sets, daily range): BP systolic 98–150; BP diastolic 54–79
[2017-08-03 05:28] LABS: BASOPHIL (%) 0.2 % (0-1); EOSINOPHIL (%) 0 % (0-5); HEMATOCRIT 45.6 % (36.0-46.0); HEMOGLOBIN 13.8 G/DL (11.9-15.5); IMMATURE GRANULOCYTE (%) 0.6 % (0.0-0.7); LYMPHOCYTE (%) 19.5 % (15-42); LYMPHOCYTE COUNT 1.3 K/uL (1.0-2.8); MCH 27.2 PG (29.0-34.0); MCHC 30.3 G/DL (30.0-36.0); MCV 89.9 FL (83-99); MONOCYTE (%) 6.7 % (3-12); MONOCYTE COUNT 0.4 K/uL (0-0.8); NEUTROPHIL COUNT 4.7 K/uL (1.8-6.4); PLATELET COUNT 181 K/uL (156-360); RBC DIS.WIDTH-CV 17.8 % (11.8-14.6); RBC DIS.WIDTH-SD 58.4 % (39-53); RED BLOOD COUNT 5.07 M/uL (3.80-5.20); WHITE BLOOD COUNT 6.5 K/uL (4.1-10.2)
[2017-08-03 05:59] LABS: ALBUMIN 3.4 G/DL (3.2-4.8); ALKALINE PHOSPHATASE 71 IU/L (3-129); ALT (GPT) 22 IU/L (3-49); AST (GOT) 17 IU/L (2-34); CHLORIDE 104 MEQ/L (99-109); CREATININE 1.4 MG/DL (0.6-1.3); GFR ESTIMATE (CALCULATED) 40 mL/min/; GLUCOSE 136 mg/dL (70-99); POTASSIUM 4.8 MEQ/L (3.7-5.4); SODIUM 140 MEQ/L (136-147); TOTAL BILIRUBIN 0.5 MG/DL (0.0-1.0); TOTAL PROTEIN 5.9 G/DL (6.4-8.3); UREA NITROGEN (BUN) 52 mg/dL (9-23)
[2017-08-04 03:15] VITALS: BP 136/72
[2017-08-04 07:12] LABS: CHLORIDE 105 MEQ/L (99-109); CREATININE 1.3 MG/DL (0.6-1.3); GFR ESTIMATE (CALCULATED) 43 mL/min/; GLUCOSE 123 mg/dL (70-99); POTASSIUM 4.6 MEQ/L (3.7-5.4); SODIUM 139 MEQ/L (136-147); UREA NITROGEN (BUN) 61 mg/dL (9-23)
[2017-08-04 07:14] VITALS: BP 133/79
[2017-08-04 19:33] VITALS: BP 138/84
[2017-08-04 23:25] VITALS: BP 145/80
[2017-08-05 04:15] VITALS: BP 186/96
[2017-08-05 06:33] LABS: CHLORIDE 107 MEQ/L (99-109); CREATININE 1.2 MG/DL (0.6-1.3); GFR ESTIMATE (CALCULATED) 48 mL/min/; GLUCOSE 119 mg/dL (70-99); POTASSIUM 4.6 MEQ/L (3.7-5.4); SODIUM 141 MEQ/L (136-147); UREA NITROGEN (BUN) 59 mg/dL (9-23)
[2017-08-05 07:52] VITALS: BP 137/74
[2017-08-05 12:18] VITALS: BP 134/99
[2017-08-05 15:49] VITALS: BP 139/74
[2017-08-05 19:39] VITALS: BP 150/76
[2017-08-05 23:26] VITALS: BP 179/91
[2017-08-06 04:07] VITALS: BP 143/88
[2017-08-06 05:59] LABS: BASOPHIL (%) 0.1 % (0-1); EOSINOPHIL (%) 0.3 % (0-5); HEMATOCRIT 45.4 % (36.0-46.0); HEMOGLOBIN 13.6 G/DL (11.9-15.5); IMMATURE GRANULOCYTE (%) 0.7 % (0.0-0.7); LYMPHOCYTE (%) 29.8 % (15-42); LYMPHOCYTE COUNT 2.2 K/uL (1.0-2.8); MCH 27.1 PG (29.0-34.0); MCV 90.4 FL (83-99); MONOCYTE (%) 9.4 % (3-12); MONOCYTE COUNT 0.7 K/uL (0-0.8); NEUTROPHIL (%) 59.7 % (45-76); NEUTROPHIL COUNT 4.5 K/uL (1.8-6.4); PLATELET COUNT 157 K/uL (156-360); RBC DIS.WIDTH-CV 17.5 % (11.8-14.6); RBC DIS.WIDTH-SD 58.5 % (39-53); RED BLOOD COUNT 5.02 M/uL (3.80-5.20); WHITE BLOOD COUNT 7.5 K/uL (4.1-10.2)
[2017-08-06 06:11] LABS: CHLORIDE 108 MEQ/L (99-109); CREATININE 1.2 MG/DL (0.6-1.3); GFR ESTIMATE (CALCULATED) 48 mL/min/; POTASSIUM 4.2 MEQ/L (3.7-5.4); SODIUM 143 MEQ/L (136-147); UREA NITROGEN (BUN) 41 mg/dL (9-23)
[2017-08-06 06:14] LABS: GLUCOSE 84 mg/dL (70-99)
[2017-08-06 07:49] VITALS: BP 115/71
[2017-08-06 11:20] VITALS: BP 118/69
[2017-08-06 16:51] VITALS: BP 154/87
[2017-08-06 19:20] VITALS: BP 136/52
[2017-08-07 00:10] VITALS: BP 142/80
[2017-08-07 04:49] VITALS: BP 162/87
[2017-08-07 05:10] LABS: BASOPHIL (%) 0.2 % (0-1); EOSINOPHIL (%) 0.8 % (0-5); EOSINOPHIL COUNT 0.1 K/uL (0-0.3); HEMATOCRIT 45.4 % (36.0-46.0); HEMOGLOBIN 13.9 G/DL (11.9-15.5); IMMATURE GRANULOCYTE (%) 0.6 % (0.0-0.7); LYMPHOCYTE (%) 25.1 % (15-42); LYMPHOCYTE COUNT 2.1 K/uL (1.0-2.8); MCH 27.9 PG (29.0-34.0); MCHC 30.6 G/DL (30.0-36.0); MCV 91.2 FL (83-99); MONOCYTE (%) 9.6 % (3-12); MONOCYTE COUNT 0.8 K/uL (0-0.8); NEUTROPHIL (%) 63.7 % (45-76); NEUTROPHIL COUNT 5.3 K/uL (1.8-6.4); PLATELET COUNT 153 K/uL (156-360); RBC DIS.WIDTH-CV 17.5 % (11.8-14.6); RBC DIS.WIDTH-SD 58.4 % (39-53); RED BLOOD COUNT 4.98 M/uL (3.80-5.20); WHITE BLOOD COUNT 8.4 K/uL (4.1-10.2)
[2017-08-07 05:37] LABS: CHLORIDE 108 MEQ/L (99-109); CREATININE 1.1 MG/DL (0.6-1.3); GFR ESTIMATE (CALCULATED) 53 mL/min/; GLUCOSE 93 mg/dL (70-99); POTASSIUM 4.2 MEQ/L (3.7-5.4); SODIUM 142 MEQ/L (136-147); UREA NITROGEN (BUN) 41 mg/dL (9-23)
[2017-08-07 07:38] VITALS: BP 148/84
[2017-08-07 13:00] VITALS: BP 149/75
[2017-08-07 15:56] VITALS: BP 135/92
[2017-08-07 18:57] VITALS: BP 129/86
[2017-08-08] VITALS (7 sets, daily range): BP systolic 115–132; BP diastolic 58–85
[2017-08-08 05:26] LABS: BASOPHIL (%) 0 % (0-1); EOSINOPHIL (%) 0 % (0-5); HEMATOCRIT 44.4 % (36.0-46.0); HEMOGLOBIN 13.6 G/DL (11.9-15.5); IMMATURE GRANULOCYTE (%) 0.6 % (0.0-0.7); LYMPHOCYTE (%) 11.2 % (15-42); MCH 27.9 PG (29.0-34.0); MCHC 30.6 G/DL (30.0-36.0); MONOCYTE (%) 4.6 % (3-12); MONOCYTE COUNT 0.4 K/uL (0-0.8); NEUTROPHIL (%) 83.6 % (45-76); NEUTROPHIL COUNT 7.5 K/uL (1.8-6.4); PLATELET COUNT 164 K/uL (156-360); RBC DIS.WIDTH-CV 17.4 % (11.8-14.6); RBC DIS.WIDTH-SD 57.9 % (39-53); RED BLOOD COUNT 4.88 M/uL (3.80-5.20)
[2017-08-08 05:53] LABS: CHLORIDE 107 MEQ/L (99-109); CREATININE 1.2 MG/DL (0.6-1.3); GFR ESTIMATE (CALCULATED) 48 mL/min/; GLUCOSE 133 mg/dL (70-99); POTASSIUM 4.5 MEQ/L (3.7-5.4); SODIUM 138 MEQ/L (136-147); UREA NITROGEN (BUN) 40 mg/dL (9-23)
[2017-08-09 04:25] VITALS: BP 156/92
[2017-08-09 06:05] LABS: BASOPHIL (%) 0.1 % (0-1); EOSINOPHIL (%) 0.1 % (0-5); HEMATOCRIT 45.5 % (36.0-46.0); HEMOGLOBIN 13.9 G/DL (11.9-15.5); IMMATURE GRANULOCYTE (%) 0.6 % (0.0-0.7); LYMPHOCYTE (%) 11.5 % (15-42); LYMPHOCYTE COUNT 0.9 K/uL (1.0-2.8); MCH 27.9 PG (29.0-34.0); MCHC 30.5 G/DL (30.0-36.0); MCV 91.2 FL (83-99); MONOCYTE COUNT 0.5 K/uL (0-0.8); NEUTROPHIL (%) 81.7 % (45-76); NEUTROPHIL COUNT 6.7 K/uL (1.8-6.4); PLATELET COUNT 139 K/uL (156-360); RBC DIS.WIDTH-CV 17.6 % (11.8-14.6); RBC DIS.WIDTH-SD 58.3 % (39-53); RED BLOOD COUNT 4.99 M/uL (3.80-5.20); WHITE BLOOD COUNT 8.2 K/uL (4.1-10.2)
[2017-08-09 06:24] LABS: CHLORIDE 108 MEQ/L (99-109); GFR ESTIMATE (CALCULATED) 59 mL/min/; GLUCOSE 127 mg/dL (70-99); POTASSIUM 4.3 MEQ/L (3.7-5.4); SODIUM 140 MEQ/L (136-147); UREA NITROGEN (BUN) 34 mg/dL (9-23)
[2017-08-09 08:30] VITALS: BP 135/86
[2017-08-09 11:29] VITALS: BP 136/72
[2017-08-09] MEDS ORDERED: GUAIFENESI100 MG/5 M PO (11:36)
[2017-08-09] MEDS ORDERED: PREDNISONE20 MG PO (11:37)
[2017-08-09] MEDS ORDERED: LASIX20 MG PO (11:38)
[2017-08-09] MEDS ORDERED: ISOSORBIDE DINI10 MG PO (11:47)
[2017-08-09] MEDS ORDERED: NITROSTAT0.4 MG SL (11:47)
== END 2017-08-09 14:18 | disposition home health service (06) | DRG 189 ==
LOC: EME 11:33 → EDOF 14:11 → 4EAST 14:11 → ENRESERV 14:12 → 4EAST 16:31
PROVIDERS: Hospitalist; Internal Medicine; Internal Medicine Nephrology; Nurse Practitioner Family
DX: J96.01 Acute respiratory failure with hypoxia (principal); J44.1 Chronic obstructive pulmonary disease with (acute) exacerbation; I13.0 Hypertensive heart and chronic kidney disease with heart failure and stage 1 through stage 4 chronic kidney disease, or unspecified chronic kidney disease; I50.33 Acute on chronic diastolic (congestive) heart failure; N17.9 Acute kidney failure, unspecified; T45.1X5A Adverse effect of antineoplastic and immunosuppressive drugs, initial encounter; T86.12 Kidney transplant failure; N18.3 Chronic kidney disease, stage 3 (moderate); J18.9 Pneumonia, unspecified organism; J44.0 Chronic obstructive pulmonary disease with (acute) lower respiratory infection; I48.92 Unspecified atrial flutter; I25.10 Atherosclerotic heart disease of native coronary artery without angina pectoris; I48.0 Paroxysmal atrial fibrillation; I48.2 Chronic atrial fibrillation; G62.9 Polyneuropathy, unspecified; E78.5 Hyperlipidemia, unspecified; K21.9 Gastro-esophageal reflux disease without esophagitis; I70.201 Unspecified atherosclerosis of native arteries of extremities, right leg; M79.7 Fibromyalgia; M54.40 Lumbago with sciatica, unspecified side; G89.29 Other chronic pain; Z86.73 Personal history of transient ischemic attack (TIA), and cerebral infarction without residual deficits; F32.9 Major depressive disorder, single episode, unspecified; F17.200 Nicotine dependence, unspecified, uncomplicated; Z79.01 Long term (current) use of anticoagulants; Z79.82 Long term (current) use of aspirin; Z91.041 Radiographic dye allergy status; Z87.19 Personal history of other diseases of the digestive system; Z71.6 Tobacco abuse counseling
CPT/HCPCS: 71045; 71250; 80048; 80053; 83880; 84484; 85025; 85027; 85379; 87502; 93005; 94010; 94640; 94640 76; 94799; 99202; 99281; 99284; C1760; C1769; C1887; C1894; J1100; J1200; J1644; J1940; J2250; J2765; J2920; J2930; J3010; J7040; J7120; J7507; J7512; J7644

== ENCOUNTER 2017-08-25 10:54 | Inpatient (IN) | payer OTHER ==
[~2017-08-25] VITALS: Ht 175.3 cm; Wt 90.0 kg
[~2017-08-25 10:54] MED LIST changes: +GUAIFENESI100 MG/5 M PO; +HYDRALAZINE HCL10 MG PO; +ISOSORBIDE DINI10 MG PO; +LASIX20 MG PO; +NITROSTAT0.4 MG SL
[2017-08-25 11:25] LABS: BASOPHIL (%) 0.3 % (0-1); EOSINOPHIL (%) 0.1 % (0-5); EOSINOPHIL (%) 0.3 % (0-5); HEMATOCRIT 47.1 % (36.0-46.0); HEMOGLOBIN 14.7 G/DL (11.9-15.5); HEMOGLOBIN 14.9 G/DL (11.9-15.5); IMMATURE GRANULOCYTE (%) 0.3 % (0.0-0.7); IMMATURE GRANULOCYTE (%) 0.4 % (0.0-0.7); LYMPHOCYTE (%) 17.8 % (15-42); LYMPHOCYTE (%) 18.2 % (15-42); LYMPHOCYTE COUNT 1.4 K/uL (1.0-2.8); MCH 27.9 PG (29.0-34.0); MCH 28.7 PG (29.0-34.0); MCHC 31.2 G/DL (30.0-36.0); MCHC 31.7 G/DL (30.0-36.0); MCV 89.5 FL (83-99); MCV 90.6 FL (83-99); MONOCYTE (%) 7.2 % (3-12); MONOCYTE (%) 7.6 % (3-12); MONOCYTE COUNT 0.5 K/uL (0-0.8); MONOCYTE COUNT 0.6 K/uL (0-0.8); NEUTROPHIL (%) 73.7 % (45-76); NEUTROPHIL (%) 73.8 % (45-76); NEUTROPHIL COUNT 5.6 K/uL (1.8-6.4); NEUTROPHIL COUNT 5.8 K/uL (1.8-6.4); PLATELET COUNT 139 K/uL (156-360); PLATELET COUNT 149 K/uL (156-360); RBC DIS.WIDTH-CV 17.6 % (11.8-14.6); RBC DIS.WIDTH-CV 17.7 % (11.8-14.6); RBC DIS.WIDTH-SD 58.4 % (39-53); RBC DIS.WIDTH-SD 58.6 % (39-53); RED BLOOD COUNT 5.19 M/uL (3.80-5.20); RED BLOOD COUNT 5.26 M/uL (3.80-5.20); WHITE BLOOD COUNT 7.5 K/uL (4.1-10.2); WHITE BLOOD COUNT 7.8 K/uL (4.1-10.2)
[2017-08-25 11:31] LABS: INTER. NORMALIZED RATIO 1.3
[2017-08-25 11:33] LABS: PTT 37.5 SEC (25-37)
[2017-08-25 11:35] LABS: AMYLASE 30 IU/L (1-118); CHLORIDE 105 mEq/L (99-109); POTASSIUM 5.2 mEq/L (3.7-5.4); SODIUM 138 mEq/L (136-147)
[2017-08-25 11:36] LABS: GLUCOSE 122 mg/dL (70-99)
[2017-08-25 11:39] LABS: SERUM ETHYL ALCOHOL < 10 mg/dL
[2017-08-25 11:40] LABS: CREATININE 1.1 mg/dL (0.6-1.3); GFR ESTIMATE (CALCULATED) 53 mL/min/
[2017-08-25 11:41] LABS: UREA NITROGEN (BUN) 15 mg/dL (9-23)
[2017-08-25 11:43] LABS: LIPASE 9 U/L (1.0-51.0)
[2017-08-25 11:46] LABS: TROP-I INTERPRETATION NEGATIVE; TROPONIN-I 0.04 ng/mL (0.0-0.30)
[2017-08-25 12:05] LABS: GFR ESTIMATE (CALCULATED) 59 mL/min/
[2017-08-25 12:06] LABS: UREA NITROGEN (BUN) 16 mg/dL (9-23)
[2017-08-25 12:07] LABS: AST (GOT) 12 IU/L (2-34)
[2017-08-25 12:08] LABS: ALT (GPT) 15 IU/L (3-49); LIPASE 8 U/L (1.0-51.0)
[2017-08-25 12:59] LABS: ALBUMIN 3.4 G/DL (3.2-4.8); CHLORIDE 107 MEQ/L (99-109); POTASSIUM 4.7 MEQ/L (3.7-5.4); SODIUM 139 MEQ/L (136-147); TOTAL BILIRUBIN 1.1 MG/DL (0.0-1.0)
[2017-08-25 13:05] LABS: GLUCOSE 123 mg/dL (70-99); TOTAL PROTEIN 6.6 G/DL (6.4-8.3)
[2017-08-25 13:38] LABS: ALKALINE PHOSPHATASE 81 IU/L (3-129)
[2017-08-25 15:33] LABS: BASE EXCESS 0.7 mEq/L (-3 to +3); CARBOXY HGB 2.9 % (0-5); METHEMOGLOBIN 0.6 % (0-1.5); PCO2 43 mm Hg (35-45); PO2 64 mm Hg (80-100); pH 7.39 (7.35-7.45)
[2017-08-25 15:37] LABS: COMMENTS - BLOOD GASES A+C+; DEVICE NCHF; O2 FLOW 10 L/MIN; SITE RR
[2017-08-25] MEDS ORDERED: antibiotic (16:16)
[2017-08-25] MEDS ORDERED: K-DUR20 MEQ PO (16:17)
[2017-08-25 17:55] VITALS: BP 130/87
[2017-08-25 18:00] VITALS: BP 130/87
[2017-08-25 19:28] LABS: TROP-I INTERPRETATION NEGATIVE; TROPONIN-I 0.02 ng/mL (0.0-0.30)
[2017-08-25 21:10] VITALS: BP 122/68
[2017-08-26] VITALS (7 sets, daily range): BP systolic 106–144; BP diastolic 61–94
[2017-08-26 01:00] LABS: TROP-I INTERPRETATION NEGATIVE; TROPONIN-I 0.02 ng/mL (0.0-0.30)
[2017-08-26 06:14] LABS: BASOPHIL (%) 0.3 % (0-1); EOSINOPHIL (%) 0.2 % (0-5); HEMATOCRIT 45.3 % (36.0-46.0); HEMOGLOBIN 13.6 G/DL (11.9-15.5); IMMATURE GRANULOCYTE (%) 0.5 % (0.0-0.7); LYMPHOCYTE (%) 9.6 % (15-42); LYMPHOCYTE COUNT 0.6 K/uL (1.0-2.8); MCH 27.4 PG (29.0-34.0); MCV 91.3 FL (83-99); MONOCYTE COUNT 0.1 K/uL (0-0.8); NEUTROPHIL (%) 87.4 % (45-76); NEUTROPHIL COUNT 5.8 K/uL (1.8-6.4); PLATELET COUNT 129 K/uL (156-360); RBC DIS.WIDTH-CV 17.5 % (11.8-14.6); RBC DIS.WIDTH-SD 58.8 % (39-53); RED BLOOD COUNT 4.96 M/uL (3.80-5.20); WHITE BLOOD COUNT 6.6 K/uL (4.1-10.2)
[2017-08-26 06:20] LABS: CHLORIDE 109 MEQ/L (99-109); POTASSIUM 4.8 MEQ/L (3.7-5.4); SODIUM 140 MEQ/L (136-147)
[2017-08-26 06:31] LABS: TROP-I INTERPRETATION NEGATIVE; TROPONIN-I 0.02 ng/mL (0.0-0.30)
[2017-08-26 06:42] LABS: GFR ESTIMATE (CALCULATED) 32 mL/min/; HDL CHOLESTEROL 27 MG/DL (Desirable>=50); LDL CHOLESTEROL 72 mg/dL (Desirable<100); NON-HDL CHOLESTEROL 95 mg/dL (Desirable<160); TOTAL CHOLESTEROL 122 mg/dL (Desirable<200); TRIGLYCERIDES 116 MG/DL (Normal: <150)
[2017-08-26 06:44] LABS: CREATININE 1.7 MG/DL (0.6-1.3); GLUCOSE 186 mg/dL (70-99); UREA NITROGEN (BUN) 25 mg/dL (9-23)
[2017-08-26 09:04] LABS: HEMOGLOBIN A1c (GLYCOHEMOGLOB) 5.4 % (Below 5.7)
[2017-08-26 09:32] LABS: APPEARANCE TURBID ((CLEAR)); BILIRUBIN NEGATIVE; BLOOD MODERATE; COLOR AMBER ((YELLOW)); GLUCOSE (STRIP) NEGATIVE; KETONES NEGATIVE; LEUKOCYTES LARGE; NITRITE NEGATIVE; PROTEIN (STRIP) 100; SPECIFIC GRAVITY 1.012 (1.000-1.030); UROBILINOGEN 0.2 MG/DL (0.2-1.0)
[2017-08-26 09:59] LABS: UCUL ADDED? YES; WHITE BLOOD CELLS TNTC /HPF (0-5)
[2017-08-27 03:29] VITALS: BP 155/71
[2017-08-27 05:59] LABS: BASOPHIL (%) 0.1 % (0-1); EOSINOPHIL (%) 0 % (0-5); HEMATOCRIT 42.1 % (36.0-46.0); HEMOGLOBIN 12.6 G/DL (11.9-15.5); IMMATURE GRANULOCYTE (%) 0.5 % (0.0-0.7); LYMPHOCYTE (%) 11.5 % (15-42); LYMPHOCYTE COUNT 0.9 K/uL (1.0-2.8); MCHC 29.9 G/DL (30.0-36.0); MCV 90.1 FL (83-99); MONOCYTE (%) 3.6 % (3-12); MONOCYTE COUNT 0.3 K/uL (0-0.8); NEUTROPHIL (%) 84.3 % (45-76); NEUTROPHIL COUNT 6.3 K/uL (1.8-6.4); PLATELET COUNT 136 K/uL (156-360); RBC DIS.WIDTH-CV 17.1 % (11.8-14.6); RED BLOOD COUNT 4.67 M/uL (3.80-5.20); WHITE BLOOD COUNT 7.5 K/uL (4.1-10.2)
[2017-08-27 06:14] LABS: ALBUMIN 3.1 G/DL (3.2-4.8); ALKALINE PHOSPHATASE 59 IU/L (3-129); ALT (GPT) 10 IU/L (3-49); AST (GOT) 11 IU/L (2-34); CHLORIDE 108 MEQ/L (99-109); CREATININE 1.9 MG/DL (0.6-1.3); GFR ESTIMATE (CALCULATED) 28 mL/min/; GLUCOSE 179 mg/dL (70-99); POTASSIUM 4.7 MEQ/L (3.7-5.4); SODIUM 140 MEQ/L (136-147); TOTAL PROTEIN 6.1 G/DL (6.4-8.3); UREA NITROGEN (BUN) 35 mg/dL (9-23)
[2017-08-27 06:15] LABS: TOTAL BILIRUBIN 0.5 MG/DL (0.0-1.0)
[2017-08-27 07:18] VITALS: BP 128/81
[2017-08-27 11:50] VITALS: BP 132/77
[2017-08-27 16:26] VITALS: BP 125/93
[2017-08-27 19:00] VITALS: BP 128/72
[2017-08-27 23:16] VITALS: BP 134/80
[2017-08-28 03:41] VITALS: BP 141/75
[2017-08-28 06:15] LABS: CHLORIDE 107 MEQ/L (99-109); CREATININE 1.7 MG/DL (0.6-1.3); GFR ESTIMATE (CALCULATED) 32 mL/min/; GLUCOSE 155 mg/dL (70-99); MAGNESIUM 1.8 mg/dl (1.3-2.7); PHOSPHORUS 3.2 mg/dL (2.5-4.9); POTASSIUM 4.8 MEQ/L (3.7-5.4); SODIUM 136 MEQ/L (136-147); UREA NITROGEN (BUN) 44 mg/dL (9-23)
[2017-08-28 06:31] LABS: BASOPHIL (%) 0.1 % (0-1); EOSINOPHIL (%) 0 % (0-5); HEMOGLOBIN 12.6 G/DL (11.9-15.5); IMMATURE GRANULOCYTE (%) 1.3 % (0.0-0.7); LYMPHOCYTE (%) 9.8 % (15-42); LYMPHOCYTE COUNT 0.9 K/uL (1.0-2.8); MCH 27.6 PG (29.0-34.0); MCHC 30.7 G/DL (30.0-36.0); MCV 89.9 FL (83-99); MONOCYTE (%) 3.4 % (3-12); MONOCYTE COUNT 0.3 K/uL (0-0.8); NEUTROPHIL (%) 85.4 % (45-76); NEUTROPHIL COUNT 7.9 K/uL (1.8-6.4); PLATELET COUNT 140 K/uL (156-360); RBC DIS.WIDTH-CV 16.9 % (11.8-14.6); RBC DIS.WIDTH-SD 55.8 % (39-53); RED BLOOD COUNT 4.56 M/uL (3.80-5.20); WHITE BLOOD COUNT 9.3 K/uL (4.1-10.2)
[2017-08-28 07:15] VITALS: BP 163/99
[2017-08-28 11:55] VITALS: BP 138/84
[2017-08-28 16:06] VITALS: BP 143/71
[2017-08-28 19:00] VITALS: BP 150/78
[2017-08-28 23:20] VITALS: BP 156/74
[2017-08-29 02:15] VITALS: BP 143/86
[2017-08-29 05:44] LABS: BASOPHIL (%) 0.1 % (0-1); EOSINOPHIL (%) 0.1 % (0-5); HEMATOCRIT 42.3 % (36.0-46.0); HEMOGLOBIN 13.1 G/DL (11.9-15.5); IMMATURE GRANULOCYTE (%) 0.4 % (0.0-0.7); LYMPHOCYTE (%) 24.5 % (15-42); LYMPHOCYTE COUNT 1.9 K/uL (1.0-2.8); MCH 27.8 PG (29.0-34.0); MCV 89.8 FL (83-99); MONOCYTE (%) 9.2 % (3-12); MONOCYTE COUNT 0.7 K/uL (0-0.8); NEUTROPHIL (%) 65.7 % (45-76); NEUTROPHIL COUNT 5.1 K/uL (1.8-6.4); PLATELET COUNT 138 K/uL (156-360); RBC DIS.WIDTH-CV 17.1 % (11.8-14.6); RBC DIS.WIDTH-SD 56.2 % (39-53); RED BLOOD COUNT 4.71 M/uL (3.80-5.20); WHITE BLOOD COUNT 7.7 K/uL (4.1-10.2)
[2017-08-29 06:16] LABS: CHLORIDE 108 MEQ/L (99-109); CREATININE 1.5 MG/DL (0.6-1.3); GFR ESTIMATE (CALCULATED) 37 mL/min/; POTASSIUM 4.3 MEQ/L (3.7-5.4); SODIUM 140 MEQ/L (136-147); UREA NITROGEN (BUN) 42 mg/dL (9-23)
[2017-08-29 06:17] LABS: GLUCOSE 99 mg/dL (70-99)
[2017-08-29 08:01] VITALS: BP 142/74
[2017-08-29 11:47] VITALS: BP 130/78
[2017-08-29 16:25] VITALS: BP 130/68
[2017-08-29 19:20] VITALS: BP 133/70
[2017-08-29 22:34] VITALS: BP 152/91
[2017-08-30 03:53] VITALS: BP 177/84
[2017-08-30 06:34] LABS: BASOPHIL (%) 0.4 % (0-1); EOSINOPHIL (%) 0.8 % (0-5); EOSINOPHIL COUNT 0.1 K/uL (0-0.3); HEMATOCRIT 46.1 % (36.0-46.0); IMMATURE GRANULOCYTE (%) 0.9 % (0.0-0.7); LYMPHOCYTE (%) 30.7 % (15-42); LYMPHOCYTE COUNT 2.4 K/uL (1.0-2.8); MCH 26.8 PG (29.0-34.0); MCHC 30.4 G/DL (30.0-36.0); MCV 88.1 FL (83-99); MONOCYTE (%) 10.8 % (3-12); MONOCYTE COUNT 0.8 K/uL (0-0.8); NEUTROPHIL (%) 56.4 % (45-76); NEUTROPHIL COUNT 4.4 K/uL (1.8-6.4); PLATELET COUNT 177 K/uL (156-360); RBC DIS.WIDTH-CV 16.9 % (11.8-14.6); RBC DIS.WIDTH-SD 54.3 % (39-53); RED BLOOD COUNT 5.23 M/uL (3.80-5.20); WHITE BLOOD COUNT 7.7 K/uL (4.1-10.2)
[2017-08-30 07:06] LABS: CHLORIDE 104 MEQ/L (99-109); CREATININE 1.5 MG/DL (0.6-1.3); GFR ESTIMATE (CALCULATED) 37 mL/min/; GLUCOSE 94 mg/dL (70-99); POTASSIUM 4.6 MEQ/L (3.7-5.4); SODIUM 143 MEQ/L (136-147); UREA NITROGEN (BUN) 38 mg/dL (9-23)
[2017-08-30 07:14] VITALS: BP 172/94
[2017-08-30 11:42] VITALS: BP 155/95
[2017-08-30] MEDS ORDERED: PREDNISONE20 MG PO (14:40)
[2017-08-30] MEDS ORDERED: MAG-OXIDE400 MG PO (14:40)
[2017-08-30] MEDS ORDERED: TACROLIMUS ANHYD1 MG PO (14:50)
== END 2017-08-30 18:11 | DRG 64 ==
LOC: EME 10:54 → EDOF 15:30 → 4EAST 15:30 → ENRESERV 15:35 → 4EAST 17:44 → ENRESERV 08-28 11:05 → CANRESERV 08-28 11:05 → ENRESERV 08-29 20:30 → 5SOUTH 08-29 22:23
PROVIDERS: Emergency Medicine; Hospitalist; Internal Medicine; Internal Medicine Nephrology
DX: I63.9 Cerebral infarction, unspecified (principal); J96.01 Acute respiratory failure with hypoxia; J15.9 Unspecified bacterial pneumonia; Y95 Nosocomial condition; J44.0 Chronic obstructive pulmonary disease with (acute) lower respiratory infection; J44.1 Chronic obstructive pulmonary disease with (acute) exacerbation; N17.9 Acute kidney failure, unspecified; T36.8X5A Adverse effect of other systemic antibiotics, initial encounter; G93.40 Encephalopathy, unspecified; I50.33 Acute on chronic diastolic (congestive) heart failure; I13.0 Hypertensive heart and chronic kidney disease with heart failure and stage 1 through stage 4 chronic kidney disease, or unspecified chronic kidney disease; N18.3 Chronic kidney disease, stage 3 (moderate); Z94.0 Kidney transplant status; R47.01 Aphasia; I48.0 Paroxysmal atrial fibrillation; I48.92 Unspecified atrial flutter; E11.22 Type 2 diabetes mellitus with diabetic chronic kidney disease; E11.51 Type 2 diabetes mellitus with diabetic peripheral angiopathy without gangrene; E11.40 Type 2 diabetes mellitus with diabetic neuropathy, unspecified; K21.9 Gastro-esophageal reflux disease without esophagitis; M79.7 Fibromyalgia; I25.10 Atherosclerotic heart disease of native coronary artery without angina pectoris; G89.29 Other chronic pain; M19.90 Unspecified osteoarthritis, unspecified site; M54.5 Low back pain; G43.909 Migraine, unspecified, not intractable, without status migrainosus; E78.5 Hyperlipidemia, unspecified; F32.9 Major depressive disorder, single episode, unspecified; F41.9 Anxiety disorder, unspecified; F17.200 Nicotine dependence, unspecified, uncomplicated; Z80.9 Family history of malignant neoplasm, unspecified; Z82.3 Family history of stroke
CPT/HCPCS: 36600; 70450; 70544; 70551; 71045; 71046; 76770; 80047; 80048; 80053; 80061; 80197 90; 80202; 81003; 82150; 82803; 82948; 83036; 83605; 83690; 83735; 83880; 84100; 84145 90; 84484; 84999; 85025; 85025 91; 85610; 85730; 86850; 86900; 86901; 86905; 86920; 87040; 87086; 87502; 92507 GN; 92523 GN; 93005; 94640; 94640 76; 94760; 94799; 97530 GO; 97530 GP; 99202; 99281; 99285; G0480; J0456; J1940; J2405; J2543; J2920; J3370; J7050; J7507; J7512

== ENCOUNTER 2017-11-10 22:00 | Inpatient (IN) | payer OTHER ==
[~2017-11-10] VITALS: Ht 175.3 cm; Wt 94.4 kg
[~2017-11-10 22:00] MED LIST changes: +K-DUR20 MEQ PO; +antibiotic
[2017-11-10 22:37] LABS: HEMATOCRIT 34.7 % (36.0-46.0); HEMOGLOBIN 10.8 G/DL (11.9-15.5); MCH 27.8 PG (29.0-34.0); MCHC 31.1 G/DL (30.0-36.0); MCV 89.2 FL (83-99); PLATELET COUNT 121 K/uL (156-360); RBC DIS.WIDTH-CV 17.7 % (11.8-14.6); RBC DIS.WIDTH-SD 57.1 % (39-53); RED BLOOD COUNT 3.89 M/uL (3.80-5.20); WHITE BLOOD COUNT 8.7 K/uL (4.1-10.2)
[2017-11-10 22:44] LABS: INTER. NORMALIZED RATIO 1.4
[2017-11-10 22:46] LABS: ALBUMIN 3.2 g/dL (3.2-4.8); CHLORIDE 111 mEq/L (99-109); POTASSIUM 3.9 mEq/L (3.7-5.4); SODIUM 142 mEq/L (136-147)
[2017-11-10 22:47] LABS: PTT 43.6 SEC (25-37)
[2017-11-10 22:49] LABS: GLUCOSE 138 mg/dL (70-99)
[2017-11-10 22:51] LABS: TOTAL BILIRUBIN 0.9 mg/dL (0.0-1.0)
[2017-11-10 22:52] LABS: ALKALINE PHOSPHATASE 79 IU/L (3-129); CREATININE 1.2 mg/dL (0.6-1.3); GFR ESTIMATE (CALCULATED) 48 mL/min/
[2017-11-10 22:53] LABS: UREA NITROGEN (BUN) 27 mg/dL (9-23)
[2017-11-10 22:54] LABS: AST (GOT) 12 IU/L (2-34)
[2017-11-10 22:55] LABS: ALT (GPT) 7 IU/L (3-49)
[2017-11-10 22:56] LABS: LIPASE 26 U/L (1.0-51.0)
[2017-11-10 23:04] LABS: TROP-I INTERPRETATION NEGATIVE; TROPONIN-I 0.03 ng/mL (0.0-0.30)
[2017-11-11] MEDS ORDERED: APRESOLINE10 MG PO (00:51)
[2017-11-11] MEDS ORDERED: FLONASE16 G1 BOTH NARES (00:52)
[2017-11-11 02:09] LABS: CARBON DIOXIDE (BICARBONATE) 24.6 MEQ/L (20-31)
[2017-11-11 03:15] VITALS: BP 140/82
[2017-11-11 05:10] VITALS: BP 140/65
[2017-11-11 05:58] LABS: TROP-I INTERPRETATION NEGATIVE; TROPONIN-I 0.02 ng/mL (0.0-0.30)
[2017-11-11 07:22] VITALS: BP 139/65
[2017-11-11 08:35] LABS: BASE EXCESS -3.5 mEq/L (-3 to +3); BICARBONATE 22.1 mEq/L (22-26); CARBOXY HGB 2.5 % (0-5); COMMENTS - BLOOD GASES C+; METHEMOGLOBIN 0.8 % (0-1.5); PCO2 41 mm Hg (35-45); PO2 90 mm Hg (80-100); SITE LR; pH 7.34 (7.35-7.45)
[2017-11-11 08:36] LABS: DEVICE NCHHF; FI02 50 %; O2 FLOW 40 L/MIN; TOTAL RESP RATE 18 resp/min
[2017-11-11 11:30] VITALS: BP 123/56
[2017-11-11 15:31] VITALS: BP 121/89
[2017-11-11 20:16] VITALS: BP 129/60
[2017-11-12 00:16] VITALS: BP 138/65
[2017-11-12 04:00] VITALS: BP 111/56
[2017-11-12 05:37] LABS: HEMATOCRIT 33.8 % (36.0-46.0); HEMOGLOBIN 10.2 G/DL (11.9-15.5); MCH 27.3 PG (29.0-34.0); MCHC 30.2 G/DL (30.0-36.0); MCV 90.4 FL (83-99); RBC DIS.WIDTH-CV 17.3 % (11.8-14.6); RBC DIS.WIDTH-SD 57.9 % (39-53); RED BLOOD COUNT 3.74 M/uL (3.80-5.20); WHITE BLOOD COUNT 11.4 K/uL (4.1-10.2)
[2017-11-12 05:47] LABS: PLATELET COUNT 170 K/uL (156-360)
[2017-11-12 05:56] LABS: CHLORIDE 108 MEQ/L (99-109); CREATININE 1.3 MG/DL (0.6-1.3); GFR ESTIMATE (CALCULATED) 43 mL/min/; GLUCOSE 173 mg/dL (70-99); POTASSIUM 4.4 MEQ/L (3.7-5.4); SODIUM 140 MEQ/L (136-147)
[2017-11-12 06:00] LABS: UREA NITROGEN (BUN) 42 mg/dL (9-23)
[2017-11-12 07:10] VITALS: BP 121/66
[2017-11-12 11:32] VITALS: BP 103/52
[2017-11-12 14:45] VITALS: BP 101/48
[2017-11-12 19:39] VITALS: BP 117/56
[2017-11-13 00:02] VITALS: BP 129/58
[2017-11-13 05:16] LABS: BASOPHIL (%) 0.1 % (0-1); EOSINOPHIL (%) 0 % (0-5); HEMOGLOBIN 10.2 G/DL (11.9-15.5); IMMATURE GRANULOCYTE (%) 1.2 % (0.0-0.7); LYMPHOCYTE (%) 10.3 % (15-42); MCH 27.4 PG (29.0-34.0); MCV 91.4 FL (83-99); MONOCYTE (%) 5.2 % (3-12); MONOCYTE COUNT 0.5 K/uL (0-0.8); NEUTROPHIL (%) 83.2 % (45-76); NEUTROPHIL COUNT 8.2 K/uL (1.8-6.4); PLATELET COUNT 173 K/uL (156-360); RBC DIS.WIDTH-CV 17.4 % (11.8-14.6); RBC DIS.WIDTH-SD 57.9 % (39-53); RED BLOOD COUNT 3.72 M/uL (3.80-5.20); WHITE BLOOD COUNT 9.8 K/uL (4.1-10.2)
[2017-11-13 05:48] LABS: CHLORIDE 109 MEQ/L (99-109); CREATININE 1.2 MG/DL (0.6-1.3); GFR ESTIMATE (CALCULATED) 48 mL/min/; GLUCOSE 147 mg/dL (70-99); POTASSIUM 4.6 MEQ/L (3.7-5.4); SODIUM 141 MEQ/L (136-147); UREA NITROGEN (BUN) 49 mg/dL (9-23)
[2017-11-13 06:15] VITALS: BP 131/61
[2017-11-13 08:35] VITALS: BP 133/60
[2017-11-13 12:28] VITALS: BP 138/63
[2017-11-13 19:40] VITALS: BP 138/63
[2017-11-13 23:40] VITALS: BP 128/57
[2017-11-14 03:30] VITALS: BP 167/70
[2017-11-14 05:39] LABS: BASOPHIL (%) 0.3 % (0-1); EOSINOPHIL COUNT 0.1 K/uL (0-0.3); HEMATOCRIT 35.4 % (36.0-46.0); HEMOGLOBIN 10.5 G/DL (11.9-15.5); IMMATURE GRANULOCYTE (%) 1.5 % (0.0-0.7); LYMPHOCYTE COUNT 2.2 K/uL (1.0-2.8); MCH 26.6 PG (29.0-34.0); MCHC 29.7 G/DL (30.0-36.0); MCV 89.8 FL (83-99); MONOCYTE (%) 10.7 % (3-12); MONOCYTE COUNT 0.7 K/uL (0-0.8); NEUTROPHIL (%) 50.5 % (45-76); NEUTROPHIL COUNT 3.1 K/uL (1.8-6.4); PLATELET COUNT 176 K/uL (156-360); RBC DIS.WIDTH-CV 17.2 % (11.8-14.6); RBC DIS.WIDTH-SD 57.1 % (39-53); RED BLOOD COUNT 3.94 M/uL (3.80-5.20); WHITE BLOOD COUNT 6.2 K/uL (4.1-10.2)
[2017-11-14 06:11] LABS: CHLORIDE 109 MEQ/L (99-109); CREATININE 1.1 MG/DL (0.6-1.3); GFR ESTIMATE (CALCULATED) 53 mL/min/; SODIUM 144 MEQ/L (136-147); UREA NITROGEN (BUN) 44 mg/dL (9-23)
[2017-11-14 06:12] LABS: GLUCOSE 91 mg/dL (70-99)
[2017-11-14 07:51] VITALS: BP 135/63
[2017-11-14 11:36] VITALS: BP 133/60
[2017-11-14 16:09] VITALS: BP 147/68
[2017-11-14 19:41] VITALS: BP 119/59
[2017-11-14 23:24] VITALS: BP 132/88
[2017-11-15 04:44] VITALS: BP 141/66
[2017-11-15 07:11] LABS: BASOPHIL (%) 0.3 % (0-1); EOSINOPHIL (%) 1.5 % (0-5); EOSINOPHIL COUNT 0.1 K/uL (0-0.3); HEMATOCRIT 38.8 % (36.0-46.0); HEMOGLOBIN 11.7 G/DL (11.9-15.5); IMMATURE GRANULOCYTE (%) 1.7 % (0.0-0.7); LYMPHOCYTE (%) 29.1 % (15-42); LYMPHOCYTE COUNT 2.2 K/uL (1.0-2.8); MCH 26.8 PG (29.0-34.0); MCHC 30.2 G/DL (30.0-36.0); MCV 88.8 FL (83-99); MONOCYTE (%) 11.5 % (3-12); MONOCYTE COUNT 0.9 K/uL (0-0.8); NEUTROPHIL (%) 55.9 % (45-76); NEUTROPHIL COUNT 4.2 K/uL (1.8-6.4); PLATELET COUNT 186 K/uL (156-360); RBC DIS.WIDTH-CV 17.2 % (11.8-14.6); RBC DIS.WIDTH-SD 55.9 % (39-53); RED BLOOD COUNT 4.37 M/uL (3.80-5.20); WHITE BLOOD COUNT 7.5 K/uL (4.1-10.2)
[2017-11-15 07:39] LABS: CHLORIDE 105 MEQ/L (99-109); CREATININE 0.9 MG/DL (0.6-1.3); GFR ESTIMATE (CALCULATED) > 59 mL/min/; GLUCOSE 91 mg/dL (70-99); POTASSIUM 3.9 MEQ/L (3.7-5.4); SODIUM 141 MEQ/L (136-147); UREA NITROGEN (BUN) 34 mg/dL (9-23)
[2017-11-15 08:19] VITALS: BP 148/65
[2017-11-15 12:26] VITALS: BP 112/55
[2017-11-15 16:53] VITALS: BP 173/72
[2017-11-15 20:00] VITALS: BP 116/55
[2017-11-15 23:16] VITALS: BP 128/55
[2017-11-16 03:27] VITALS: BP 134/66
[2017-11-16 07:23] VITALS: BP 121/70
[2017-11-16 11:41] VITALS: BP 99/52
[2017-11-16] MEDS ORDERED: METOPROLOL SUCC25 MG PO (12:07)
[2017-11-16] MEDS ORDERED: DULERA 100 MCG/13 GM IH (12:07)
[2017-11-16] MEDS ORDERED: LASIX20 MG PO (12:07)
[2017-11-16] MEDS ORDERED: CEFTIN500 MG PO (12:07)
[2017-11-16] MEDS ORDERED: PREDNISONE5 MG PO (12:07)
[2017-11-16] MEDS ORDERED: NICOTINE PATCH1 EAC1 TD (12:07)
== END 2017-11-16 13:35 | disposition home health service (06) | DRG 189 ==
LOC: EME 22:00 → 4EAST 11-11 00:50 → EDOF 11-11 00:50 → ENRESERV 11-11 00:52 → 4EAST 11-11 02:27 → ENRESERV 11-13 14:23 → 2EAST 11-13 16:48
PROVIDERS: Emergency Medicine; Hospitalist; Internal Medicine; Physician Assistant
DX: J96.01 Acute respiratory failure with hypoxia (principal); I11.0 Hypertensive heart disease with heart failure; I50.33 Acute on chronic diastolic (congestive) heart failure; J44.1 Chronic obstructive pulmonary disease with (acute) exacerbation; I48.0 Paroxysmal atrial fibrillation; I48.92 Unspecified atrial flutter; E11.51 Type 2 diabetes mellitus with diabetic peripheral angiopathy without gangrene; G62.9 Polyneuropathy, unspecified; I27.20 Pulmonary hypertension, unspecified; I08.3 Combined rheumatic disorders of mitral, aortic and tricuspid valves; E78.5 Hyperlipidemia, unspecified; I25.10 Atherosclerotic heart disease of native coronary artery without angina pectoris; K21.9 Gastro-esophageal reflux disease without esophagitis; M79.7 Fibromyalgia; F17.200 Nicotine dependence, unspecified, uncomplicated; Z79.02 Long term (current) use of antithrombotics/antiplatelets; Z79.82 Long term (current) use of aspirin; Z86.73 Personal history of transient ischemic attack (TIA), and cerebral infarction without residual deficits; Z94.0 Kidney transplant status; Z87.442 Personal history of urinary calculi
CPT/HCPCS: 36600; 71045; 71046; 80048; 80053; 82803; 82948; 83605; 83690; 83880; 84484; 85025; 85027; 85610; 85730; 87040; 93005; 93306; 94640; 94640 76; 94799; 99202; 99281; 99285; J0456; J0696; J1815; J1940; J2920; J7507; J7512